=== PATIENT | female | born 1980 | race Caucasian/White ===

== ENCOUNTER → 2017-01-14 | Outpatient (CLI) | payer BC ==
--- NOTE | 2017-01-14 11:33 | KCIC ---
Clinical Indication: survey. Technique: Study is dated January 14, 2017. No comparison for this is available. Transabdominal imaging was performed. Findings: There is a single intrauterine gestation in breech presentation. The placenta is anterior in location without evidence of placental previa. Cervix appears long and closed. MARCELLA measured 18.3 cm. Biometrical data is as follows: BPD = 7.23 cm, with a corresponding gestational age of 29 weeks 0 days. HC = 27.17 cm, with a corresponding gestational age of 29 weeks 5 days. AC = 24.10 cm, with a corresponding gestational age of 28 weeks 3 days. FL = 5.27 cm, with a corresponding gestational age of 28 weeks 0 days. Ratio of head circumference to abdominal circumference is 1.13. Cephalic index is 79.2 percent. Normal range is 70% to 86%. Overall, the estimated sonographic gestational age is 28 weeks 6 days for an estimated date of delivery of April 02, 2017. Estimated weight is 1226 g, 66th percentile. survey was performed. A four chamber heart is identified with positive cardiac activity. The estimated heart rate is 143 beats per minute. There is a three-vessel cord with cord insertion visualized. stomach and urinary bladder are identified. Both kidneys are seen. Intracranial contents are within normal limits. Spine and extremities are within normal limits. IMPRESSION: Single intrauterine gestation with estimated sonographic gestational age of 28 weeks 6 days. Electronically signed by: Fredy Altman MD (01/14/2017 11:30 AM) [email or web address]
== END | disposition home or self-care (01) ==
LOC: KCIC US 10:16
PROVIDERS: ATTEND Midwife
DX: O32.1XX0 Maternal care for breech presentation, not applicable or unspecified (principal); Z3A.28 28 weeks gestation of pregnancy
CPT/HCPCS: 76805